=== PATIENT | female | born 1995 | race Caucasian/White ===

== ENCOUNTER 2022-04-21 08:20 | Outpatient (RCR) | payer MEDICAID ==
[~2022-04-21 08:20] MED LIST: ADALAT CC30 MG PO; ALBUTEROL0.09 MG/A1 IH; ANTIVERT 25MG25 MG PO; ASPIRIN 81M81 MG/TA2 PO; BACTRIM DS 8001 TAB PO; CEFTIN 250250 MG/TAB PO; CIPRO 500MG TA500 MG PO; DEPAKOTE; DICLEGIS PO; K-DUR20 MEQ PO; KEPPRA1000 MG PO; MACROBID 1100 MG/CAP PO; MOTRIN 400400 MG/TAB PO; NEURONTIN300 MG/CAP PO; NEXIUM 20MG20 MG PO; PHENERGAN 25 TA25 MG PO; PREDNISONE20 MG PO; PRENATAL; PRENATAL1 TA7 PO; PRIL40 PO; PROAIR HFA0.09 MG/AC IH; PROCARDIA XL 3030 MG PO; ULTRAM 50MG TAB50 MG PO; ZOFRAN8 MG PO; ZOLOFT 50MG50 MG PO
== END 2022-05-08 | disposition home or self-care (01) ==
LOC: MKS.ESL.PT
DX: M54.50 Low back pain, unspecified (principal)

== ENCOUNTER 2022-05-10 18:14 | Emergency (ER) | payer MEDICAID ==
[~2022-05-10] VITALS: Ht 157.5 cm; Wt 59.1 kg
[2022-05-10 18:18] VITALS: TEMP 97.1
[2022-05-10 19:05] LABS: BASO % 0.2 % (0.0-2.0); EOS # 0.1 K/mm3 (0.0-0.7); EOS % 1.1 % (0.0-4.0); GRAN # 7.5 K/mm3 (1.4-6.5); GRAN % 72.7 % (42.2-75.2); HEMOGLOBIN 11.8 g/dl (12.5-16.0); LYMPH # 1.8 K/mm3 (1.2-3.4); LYMPH % 17.1 % (20.0-51.0); MEAN CELL VOLUME 78 fl (80.0-100.0); MEAN CORPUSCULAR HEMOGLOBIN 26 pg (27-31); MEAN CORPUSCULAR HGB CONC 33 g/dl (33.0-37.0); MEAN PLATELET VOLUME 10.8 fl (7.4-10.4); MONO # 0.9 K/mm3 (0.1-0.6); MONO % 8.4 % (1.7-9.3); PLATELET COUNT 217 K/mm3 (130-400); RED BLOOD COUNT 4.56 M/mm3 (4.10-5.30); REDCELL DISTRIBUTION WIDTH-CV 14.4 % (11.5-14.5)
[2022-05-10 19:07] LABS: HEMATOCRIT 35.6 % (37.0-47.0)
[2022-05-10 19:22] LABS: ALBUMIN 3.6 gm/dL (3.5-5.0); BILIRUBIN,TOTAL 0.3 mg/dL (0.2-1.2); C-REACTIVE PROTEIN 0.33 mg/dL (0.00-0.50); CALCIUM 8.8 mg/dL (8.4-10.2); CREATININE, serum 0.76 mg/dL (0.57-1.11); POTASSIUM 3.5 mmol/L (3.5-4.5); TOTAL PROTEIN 6.8 gm/dL (6.2-8.1)
[2022-05-10 20:20] VITALS: BP 100/76; PULSE 100
== END 2022-05-10 20:25 | disposition home or self-care (01) ==
LOC: COL.ER 18:14
PROVIDERS: Nurse Practitioner
DX: R10.13 Epigastric pain (principal); Z32.02 Encounter for pregnancy test, result negative; Z28.310 Unvaccinated for COVID-19

== ENCOUNTER 2023-08-30 20:23 | Emergency (ER) | payer MEDICAID ==
[~2023-08-30] VITALS: Ht 157.5 cm; Wt 65.0 kg
[2023-08-30 20:27] VITALS: TEMP 98.4
[2023-08-30] MEDS ORDERED: levETIRAcetam 100 ML IV ONE (21:00)
[2023-08-30 22:05] VITALS: BP 124/70; PULSE 84
== END 2023-08-30 22:06 | disposition home or self-care (01) ==
LOC: COL.ER 20:23
DX: G40.909 Epilepsy, unspecified, not intractable, without status epilepticus (principal); T42.6X6A Underdosing of other antiepileptic and sedative-hypnotic drugs, initial encounter; Z91.128 Patient's intentional underdosing of medication regimen for other reason
CPT/HCPCS: J1953

== ENCOUNTER 2023-10-28 18:25 | Emergency (ER) | payer OTHER, MEDICAID ==
[~2023-10-28] VITALS: Ht 157.5 cm; Wt 65.0 kg
[2023-10-28 18:34] VITALS: TEMP 98.2
[2023-10-28 19:49] LABS: COLLECTION METHOD IN
[2023-10-28 19:52] LABS: BASO % 0.4 % (0.0-2.0); EOS # 0.1 K/mm3 (0.0-0.7); EOS % 1.3 % (0.0-4.0); GRAN # 4.6 K/mm3 (1.4-6.5); GRAN % 65.7 % (42.2-75.2); HEMOGLOBIN 11.2 g/dl (12.5-16.0); LYMPH # 1.7 K/mm3 (1.2-3.4); LYMPH % 24.5 % (20.0-51.0); MEAN CELL VOLUME 83 fl (80.0-100.0); MEAN CORPUSCULAR HEMOGLOBIN 27 pg (27-31); MEAN CORPUSCULAR HGB CONC 32 g/dl (33.0-37.0); MEAN PLATELET VOLUME 11.3 fl (7.4-10.4); MONO # 0.5 K/mm3 (0.1-0.6); MONO % 7.7 % (1.7-9.3); PLATELET COUNT 219 K/mm3 (130-400); RED BLOOD COUNT 4.22 M/mm3 (4.10-5.30); REDCELL DISTRIBUTION WIDTH-CV 14.9 % (11.5-14.5)
[2023-10-28 20:00] LABS: PH 6.5 (5.0-8.5); URINE APPEARANCE CLOUDY (CLEAR/HAZY); URINE BLOOD 3+ (NEGATIVE); URINE COLOR YELLOW (YELLOW); URINE GLUCOSE NEGATIVE (NEGATIVE); URINE KETONE TRACE (NEGATIVE); URINE NITRATE NEGATIVE (NEGATIVE); URINE PROTEIN(semi-quant) NEGATIVE (NEGATIVE)
[2023-10-28 20:05] LABS: HEMATOCRIT 34.9 % (37.0-47.0)
[2023-10-28 20:11] LABS: TRICYCLIC ANTIDEPRESS URINE NEGATIVE (NEGATIVE)
[2023-10-28 20:11] LABS: ALBUMIN 3.5 g/dL (3.5-5.0); BILIRUBIN,TOTAL 0.3 mg/dL (0.2-1.2); CALCIUM 9.8 mg/dL (8.4-10.2); CREATININE, serum 0.78 mg/dL (0.57-1.11); TOTAL PROTEIN 6.3 g/dl (6.2-8.1)
[2023-10-28 21:44] VITALS: BP 108/71; PULSE 69
== END 2023-10-28 21:55 | disposition home or self-care (01) ==
LOC: COL.ER 18:25
PROVIDERS: Emergency Medicine
DX: G40.909 Epilepsy, unspecified, not intractable, without status epilepticus (principal); Z79.899 Other long term (current) drug therapy
CPT/HCPCS: J1953

== ENCOUNTER 2023-10-29 13:24 | Emergency (ER) | payer OTHER, MEDICAID ==
[~2023-10-29] VITALS: Ht 157.5 cm; Wt 65.0 kg
[2023-10-29 13:24] VITALS: TEMP 98.6
[2023-10-29] MEDS ORDERED: levETIRAcetam 1,500 MG in Syringe 1 EACH IV ONE (13:45)
[2023-10-29] MEDS ORDERED: LORazepam 2 MG/ML 1 ML VIAL IV ONE (13:45)
[2023-10-29] MEDS ORDERED: LR 1,000 ML IV ONE (13:45)
[2023-10-29 14:39] LABS: BASO % 0.2 % (0.0-2.0); EOS # 0.1 K/mm3 (0.0-0.7); GRAN # 5.8 K/mm3 (1.4-6.5); GRAN % 71.4 % (42.2-75.2); HEMOGLOBIN 11.7 g/dl (12.5-16.0); LYMPH # 1.5 K/mm3 (1.2-3.4); MEAN CELL VOLUME 81 fl (80.0-100.0); MEAN CORPUSCULAR HEMOGLOBIN 27 pg (27-31); MEAN CORPUSCULAR HGB CONC 33 g/dl (33.0-37.0); MEAN PLATELET VOLUME 10.8 fl (7.4-10.4); MONO # 0.7 K/mm3 (0.1-0.6); MONO % 8.2 % (1.7-9.3); PLATELET COUNT 218 K/mm3 (130-400); RED BLOOD COUNT 4.42 M/mm3 (4.10-5.30); REDCELL DISTRIBUTION WIDTH-CV 14.7 % (11.5-14.5)
[2023-10-29 14:41] LABS: HEMATOCRIT 35.9 % (37.0-47.0)
[2023-10-29 14:46] LABS: ALBUMIN 3.6 g/dL (3.5-5.0); CALCIUM 9.6 mg/dL (8.4-10.2); POTASSIUM 3.7 mEq/L (3.5-4.5); TOTAL PROTEIN 6.4 g/dl (6.2-8.1)
[2023-10-29 15:10] LABS: BILIRUBIN,TOTAL 0.4 mg/dL (0.2-1.2); CREATININE, serum 0.77 mg/dL (0.57-1.11)
[2023-10-29 17:15] VITALS: BP 116/66; PULSE 98
== END 2023-10-29 17:24 | disposition short-term general hospital (02) ==
LOC: COL.ER 13:24
PROVIDERS: Emergency Medicine
DX: G40.909 Epilepsy, unspecified, not intractable, without status epilepticus (principal); Z79.899 Other long term (current) drug therapy
CPT/HCPCS: C9254; J1953; J2060; J7120

== ENCOUNTER 2024-01-16 18:47 | Emergency (ER) | payer OTHER, MEDICAID ==
[~2024-01-16] VITALS: Ht 157.5 cm; Wt 60.0 kg
[2024-01-16 18:54] VITALS: TEMP 98.4
[2024-01-16 20:51] VITALS: BP 121/70; PULSE 64
== END 2024-01-16 20:52 | disposition home or self-care (01) ==
LOC: COL.ER 18:47
DX: G40.909 Epilepsy, unspecified, not intractable, without status epilepticus (principal); F17.210 Nicotine dependence, cigarettes, uncomplicated; Z79.899 Other long term (current) drug therapy

== ENCOUNTER 2024-02-04 16:11 | Emergency (ER) | payer OTHER, MEDICAID ==
[~2024-02-04] VITALS: Ht 157.5 cm; Wt 64.5 kg
[2024-02-04 16:13] VITALS: TEMP 98.5
[2024-02-04] MEDS ORDERED: NS 1,000 ML IV ONE (17:15)
[2024-02-04 17:30] LABS: BASO % 0.4 % (0.0-2.0); EOS # 0.1 K/mm3 (0.0-0.7); EOS % 0.7 % (0.0-4.0); GRAN # 8.3 K/mm3 (1.4-6.5); HEMATOCRIT 37.5 % (37.0-47.0); HEMOGLOBIN 12.1 g/dl (12.5-16.0); LYMPH # 1.7 K/mm3 (1.2-3.4); LYMPH % 15.6 % (20.0-51.0); MEAN CELL VOLUME 80 fl (80.0-100.0); MEAN CORPUSCULAR HEMOGLOBIN 26 pg (27-31); MEAN CORPUSCULAR HGB CONC 32 g/dl (33.0-37.0); MEAN PLATELET VOLUME 11.4 fl (7.4-10.4); MONO # 0.9 K/mm3 (0.1-0.6); MONO % 8.1 % (1.7-9.3); PLATELET COUNT 207 K/mm3 (130-400); RED BLOOD COUNT 4.67 M/mm3 (4.10-5.30); REDCELL DISTRIBUTION WIDTH-CV 13.7 % (11.5-14.5)
[2024-02-04 17:47] LABS: ALANINE AMINOTRANSFERASE 7 U/L (0-55); ALKALINE PHOSPHATASE 64 U/L (40-150); ANION GAP 11 mmol/L (7-16); AST,SGOT 10 U/L (5-34); BILIRUBIN,TOTAL 0.4 mg/dL (0.2-1.2); BLOOD UREA NITROGEN 15 mg/dL (7-19); CALCIUM 9.2 mg/dL (8.4-10.2); CHLORIDE 110 mEq/L (98-107); CREATININE, serum 0.88 mg/dL (0.57-1.11); GLUCOSE 94 mg/dL (70-99); LIPASE 25 U/L (8-78); MAGNESIUM 2.2 mg/dL (1.6-2.6); POTASSIUM 3.8 mEq/L (3.5-4.5); SODIUM 139 mEq/L (136-145); TOTAL PROTEIN 7.1 g/dl (6.2-8.1)
[2024-02-04 18:06] LABS: TROPONIN-I < 0.010 ng/mL (0.00-0.033)
[2024-02-04 18:42] LABS: COLLECTION METHOD CLEAN CATCH
[2024-02-04 18:59] LABS: PH 5.5 (5.0-8.5); URINE APPEARANCE CLEAR (CLEAR/HAZY); URINE BLOOD NEGATIVE (NEGATIVE); URINE COLOR YELLOW (YELLOW); URINE GLUCOSE NEGATIVE (NEGATIVE); URINE KETONE 2+ (NEGATIVE); URINE NITRATE NEGATIVE (NEGATIVE); URINE PROTEIN(semi-quant) NEGATIVE (NEGATIVE)
[2024-02-04 19:45] VITALS: BP 116/77; PULSE 88
== END 2024-02-04 19:45 | disposition home or self-care (01) ==
LOC: COL.ER 16:11
PROVIDERS: Emergency Medicine
DX: G40.909 Epilepsy, unspecified, not intractable, without status epilepticus (principal)
CPT/HCPCS: J7030